=== PATIENT | female | born 1980 | race Caucasian/White ===

== ENCOUNTER 2019-11-27 08:24 | Emergency (ER) | payer OTHER ==
[~2019-11-27] VITALS: Ht 172.7 cm; Wt 79.8 kg
[2019-11-27 08:45] VITALS: Ht 172.7 cm; Wt 79.8 kg
[2019-11-27 09:57] VITALS: BP 171/97
== END 2019-11-27 09:57 | disposition home or self-care (01) ==
LOC: ED 08:24
DX: N76.4 Abscess of vulva (principal)
CPT/HCPCS: J2001

== ENCOUNTER 2019-11-29 10:55 | Emergency (ER) | payer OTHER ==
[~2019-11-29] VITALS: Ht 172.7 cm; Wt 80.3 kg
[2019-11-29 11:03] VITALS: Ht 172.7 cm; Wt 80.3 kg
[2019-11-29 11:27] VITALS: BP 158/93
== END 2019-11-29 11:27 | disposition home or self-care (01) ==
LOC: ED 10:55
DX: L02.214 Cutaneous abscess of groin (principal); Z48.01 Encounter for change or removal of surgical wound dressing